=== PATIENT | female | born 1995 | race Caucasian/White ===

== ENCOUNTER 2023-08-21 09:47 | Emergency (ER) | payer OTHER, BC, SELFPAY ==
--- NOTE | ~2023-08-21 | US_ITS ---
EXAMINATION: US , LIMITED CLINICAL INFORMATION: 19 weeks . Status post fall. Technique: Transabdominal and endovaginal ultrasound were performed. Multiple sagittal and transverse grayscale, color and pulse wave doppler images obtained. Comparisons: None available. FINDINGS: Single intrauterine is identified within the uterus. There is positive movement. There is an anterior grade 1 placenta. heart rate measures 135 bpm. The cervical length measures 3.8 cm. The cervix is closed. No free fluid in the pelvis. US/US OB limited IMPRESSION: Limited study. Viable single intrauterine gestation.
[2023-08-21 10:15] VITALS: BP 113/77; PULSE 95; RESP 18; TEMP 36.6; O2SAT 98; BMI 30.3
--- NOTE | 2023-08-21 12:12 | ED_ITS ---
HPI - General Adult General Chief complaint: General Medical Stated complaint: fell at work 19 wks Time Seen by Provider: 08/21/23 12:08 Source: patient Mode of arrival: ambulatory Limitations: no limitations History of Present Illness HPI narrative: 28 yold female 19 weeks GQ 1 presents to the ED for fall and right knee pain and low back pain. Patient States she tripped on the stairs walking up and her knee hit the step. patient denies any abdominal pain, vaginal bleeding, vaginal discharge, chest pain, shortness of breath, heaadache, or head injury. Related Data Allergies Allergy/AdvReac Type Severity Reaction Status Date / Time pollen Allergy Unknown Unknown Uncoded 08/21/23 10:14 Review of Systems Review of Systems: RIght knee pain and low back pain Yes all other systems are reviewed and are negative [facility] Social History Social History Advance Directives: No Advance Directives Information Provided: No Physical Exam ED Vital Signs: Vital Signs - 24 hr 08/21/23 10:15 Temperature 98 F Pulse Rate 95 Respiratory Rate 18 Blood Pressure 113/77 Pulse Oximetry 98 Oxygen Delivery Method Room Air BMI result Body Mass Index 30.3 Const General: cooperative, healthy appearing, comfortable, no acute distress, well developed, alert and awake Orientation/consciousness: oriented to person, oriented to place, oriented to ti me and patient oriented x3 HENMT Head: Yes normal to inspection, Yes No palpable skull fracture present, Yes normocephalic and Yes atraumatic Ears: hearing grossly normal bilaterally, external ears normal, TM's normal bilaterally, TM normal on the right, TM normal on the left, EAC's normal, mastoids normal and no periauricular adenopathy Eyes General: appearance normal, both eyes and all related structures Neck Neck: Yes normal visual inspection, Yes full ROM, Yes no lymphadenopathy, Yes no meningeal signs, Yes trachea midline, Yes supple, No anterior neck swelling and No tender Chest Chest palpation & inspection: normal inspection of the chest and normal palpation of entire chest wall Resp Effort & Inspection: normal respiratory effort and able to speak in complete sentences Auscultation: clear to auscultation bilaterally Cardio Jugular venous distension: no JVD Heart sounds: S1 normal heart sound present and S2 normal heart sound present GI Inspection: Yes normal to inspection Palpation (GI): Soft to palpation, not firm, nontender, no guarding and not rigid General: Yes no CVA tenderness Back/Spine/Pelvis Back: no CVA tenderness and No back tenderness Skin General skin exam: no rashes or lesions noted, elasticity normal and turgor normal Neuro General: oriented to person, oriented to place, oriented to time, patient oriented x3, gait normal, tone normal, moves all extremities, Normal light touch and pain sensation, no meningeal signs, no focal motor deficits and CN's II-XI intact bilaterally Extrem Other: All extremities negative for ecchymosis, swelling, redness, or deformity. Motor, neuro, and vascular exam is intact. General: Yes normal to inspection, Yes full ROM and Yes capillary refill normal Psych Appearance: grossly normal, well kempt and not disheveled Medical Decision Making Medical Decision Making MDM Narrative: 28-year-old female 19 weeks G1 presents to ED for right knee pain and low back pain after falling on way to work. Patient states she tripped and fell onto her knee. Patient denies any head trauma. Patient denies any head trauma. Patient states back pain on movement. Patient denies any urinary symptoms or vaginal bleeding. Patient is sent to ED by school nurse to check for . Whole Body evaluated negative for ecchymosis, crepitus, or signs of trauma. Ultrasound normal. Patient to be discharged. Patient explained worrisome signs and informed to return if she has them. Other images not indicated. Differential Diagnosis Differential Diagnoses: The differential diagnosis associated with the presentation includes (Fall, back pain, knee pain) Admission/Observation Consideration of admission/observation: Escalation of care including admission/observation considered Independent Interpretation I performed an independent interpretation of an: Ultrasound Radiology Impression Discussion of test interpretation with radiology: I have reviewed the radiologist's reading. Independent Historian Clinical information obtained from an independent historian. History obtained from or confirmed by: Other (patient) Prescription Management I considered prescription management with: Other (pain) Discharge Plan Discharge Clinical Impression: Fall Patient Disposition: Home, Self-Care Instructions: Knee Pain (ED), Back Pain (ED), Fall Prevention (ED), at 19 to 22 Weeks (ED) Additional Instructions: Recommend follow-up with primary care provider, work connection, and OBGYN. Return to the ED immediately for any abdominal pain, vaginal bleeding, vaginal discharge, flank pain, back pain, dysuria, hematuria, chest pain, shortness of breath, bluish black discoloration, inability to walk, urinary/bowel incontinence, headache, neck pain, dizziness, or any other concerning symptoms. Only Tylenol is safe. Referrals: [facility] [Outside] (Fall and pregnnat) Stand Alone Forms: Work/School Release Interventions: ED Discharge Assessment Last Done: 08/21/23 12:33 Discharge Date/Time: 08/21/23 12:34 Print Language: Sinhala
== END 2023-08-21 12:34 | disposition home or self-care (01) ==
PROVIDERS: Emergency Provider Emergency Medicine; PCP Internal Medicine
DX: Z04.3 Encounter for examination and observation following other accident (principal); O99.891 Other specified diseases and conditions complicating pregnancy; M25.561 Pain in right knee; M54.50 Low back pain, unspecified; Z91.81 History of falling; Z3A.19 19 weeks gestation of pregnancy
CPT/HCPCS: 76815; 99282; 99284

== ENCOUNTER → 2023-08-22 12:58 | Outpatient (BNVA) | payer OTHER, SELFPAY | PROVIDERS: PCP Internal Medicine; Visit Provider Physician Assistant | DX: S80.01XD Contusion of right knee, subsequent encounter (principal); M54.50 Low back pain, unspecified; W18.30XA Fall on same level, unspecified, initial encounter | CPT/HCPCS: 99203 ==